=== PATIENT | male | born 1960 | race Caucasian/White ===

== ENCOUNTER → 2017-05-30 | Outpatient (REF) | payer OTHER ==
[~2017-05-30] MED LIST: PERC5TAB12 PO; TAMS0.4C2 PO; ZYLO300T4 PO
== END ==
LOC: M SMT 12:55
PROVIDERS: ATTEND Nurse Practitioner Women's Health
DX: N20.0 Calculus of kidney (principal)

== ENCOUNTER → 2017-06-07 | Outpatient (CLI) | payer OTHER ==
--- NOTE | 2017-06-07 08:31 | REP ---
CT abdomen and pelvis without IV or oral contrast: Renal stone protocol. History: Kidney stone. Flank pain. Comparison study January 28, 2016. 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 The lung bases are clear. The liver and the spleen are normal in size and homogeneous in texture. No adrenal lesion is seen on either side. The gallbladder and the pancreas are unremarkable and unchanged. There are multiple bilateral intrarenal calculi. There are four separately identifiable calculi in the left kidney the largest of which is a 4 mm calculus at mid pole level. The right kidney contains an 8 mm intrarenal calculus in the lower pole and a 3-4 mm calculus at mid pole level. There is no evidence of hydronephrosis on either side. No ureteral calculus is observed. There are dystrophic calcifications in the prostate. Urinary bladder is unremarkable. A normal appendix is seen in the right lower quadrant. Impression: Intrarenal nephrolithiasis bilaterally. No ureteral calculus or hydronephrosis seen. No other significant finding. Signed by Kris Sloan MD 06/07/2017 05:18 P
== END ==
LOC: M RAD 07:01
PROVIDERS: ATTEND Nurse Practitioner Women's Health
DX: N20.0 Calculus of kidney (principal); R10.9 Unspecified abdominal pain

== ENCOUNTER → 2017-06-14 | Outpatient (CLI) | payer OTHER ==
[2017-06-14 14:01] LABS: INR 0.97
[2017-06-14 14:12] LABS: MEAN CORPUSCULAR HEMOGLOBIN 30.5 pg (27.0-33.0); MEAN CORPUSCULAR HGB CONC 35.1 g/dl (32.0-36.5); MEAN CORPUSCULAR VOLUME 87.1 fl (80.0-96.0); RED CELL DISTRIBUTION WIDTH 12.8 % (11.5-14.5); WHITE BLOOD COUNT 5.7 K/mm3 (4.0-10.0)
[2017-06-14 14:18] LABS: ANION GAP 3 MEQ/L (8-16); BLOOD UREA NITROGEN 15 MG/DL (7-18); CALCIUM LEVEL 9.3 MG/DL (8.5-10.1); CARBON DIOXIDE LEVEL 31 MEQ/L (21-32); CHLORIDE LEVEL 105 MEQ/L (98-107); CREATININE FOR GFR 0.99 MG/DL (0.70-1.30); GLOMERULAR FILTRATION RATE > 60.0 (>56); GLUCOSE, FASTING 121 MG/DL (70-105); POTASSIUM SERUM 4.5 MEQ/L (3.5-5.1); SODIUM LEVEL 139 MEQ/L (136-145)
== END ==
LOC: M SMT 08:40
PROVIDERS: ATTEND Nurse Practitioner Women's Health
DX: Z01.818 Encounter for other preprocedural examination (principal); N20.0 Calculus of kidney

== ENCOUNTER 2017-06-22 07:11 | Day surgery (SDC) | payer OTHER ==
[~2017-06-22] VITALS: Ht 188 cm; Wt 118.8 kg
--- NOTE | 2017-06-22 07:21 | REP ---
Clinical: Nephrolithiasis. Comparison: CT dated 06/07/2017. Findings: Bilateral intrarenal calculi noted measuring up to approximately 4 mm. Calcifications in the right laura pelvis remains stable compared to 04/14/2016 and likely represent phleboliths. Bowel gas pattern is nonspecific. No organomegaly. Skeletal structures are intact. Impression: Bilateral intrarenal calculi measuring roughly up to 4 mm. Signed by Spencer Rocha MD 06/22/2017 07:13 A
[2017-06-22] MEDS ORDERED: LIDOCAINE 1% MDV 20ML VIAL SQ PRN (07:30)
[2017-06-22] MEDS ORDERED: PROPOFOL 200 MG/20 ML VIAL As Ordered ONE ×2 (07:47→08:29)
[2017-06-22] MEDS ORDERED: MIDAZOLAM INJ 2 MG/2 ML VIAL (J2250) As Ordered ONE (07:47)
[2017-06-22] MEDS ORDERED: LIDOCAINE 2% INJ 100 MG/5 ML SDV (FOR ANES.) As Ordered ONE (07:47)
[2017-06-22] MEDS ORDERED: fentaNYL 100 MCG/2 ML INJECTION (J3010) As Ordered ONE (07:47)
[2017-06-22] MEDS ORDERED: LR 1,000 ML IV SCH (08:00)
[2017-06-22] MEDS ORDERED: LIDOCAINE 1% SDV 5 ML VIAL SC ONE (08:00)
[2017-06-22] MEDS ORDERED: ONDANSETRON 4MG/2ML VIAL (J2405) As Ordered ONE (08:30)
[2017-06-22] MEDS ORDERED: PERCOCET 5MG/325MG TAB As Ordered ONE (09:14)
[2017-06-22] MEDS: PERCOCET 5MG/325MG TAB PO PRN ×2 (09:18→10:11)
[2017-06-22 10:15] VITALS: BP 136/88
--- NOTE | 2017-06-22 14:33 | RO ---
DATE OF PROCEDURE: 06/22/2017 PREOPERATIVE DIAGNOSIS: Right 8 mm lower pole stone. POSTOPERATIVE DIAGNOSIS: Right 8 mm lower pole stone. PROCEDURE: Right extracorporeal shock wave lithotripsy. SURGEON: Dr. Cristina Cam SKIMMER: ANESTHESIA: MAC. MEDICATIONS: 2 grams of Ancef preoperatively. INDICATIONS FOR PROCEDURE: The patient is a 57-year-old gentleman who has been having right flank pain. A CT scan showed an 8 mm right renal stone and some small left renal stones. After discussing all different options, alternatives, risks and benefits, he decided to proceed with a right ESWL. He has had these done before. Informed consent was obtained in both verbal and written form. DESCRIPTION OF PROCEDURE: The patient was brought to the operating room and sequential compression devices were in place. Using both ultrasound and fluoroscopy the stone was visualized and then placed in the cross hairs of the machine. The patient then received a total of 2500 shockwaves with a total power level of 20. He tolerated the procedure well and was returned to the recovery room in stable condition. Percocet #10 tablets was prescribed for postoperative pain control.
== END 2017-06-22 10:20 | disposition home or self-care (01) ==
LOC: M SDC 07:11
PROVIDERS: ATTEND Specialist
DX: N20.0 Calculus of kidney (principal); J30.2 Other seasonal allergic rhinitis; M10.9 Gout, unspecified; K21.9 Gastro-esophageal reflux disease without esophagitis; R51 Headache; R06.83 Snoring; Z79.899 Other long term (current) drug therapy; Z87.891 Personal history of nicotine dependence

== ENCOUNTER → 2017-07-14 | Outpatient (CLI) | payer OTHER ==
--- NOTE | 2017-07-14 09:50 | REP ---
KUB, TWO VIEWS: HISTORY: Kidney stones. COMPARISON: 06/22/2017. Air is present in small and large intestine. There are no air fluid levels or dilated loops of intestine. There is no pneumoperitoneum. Calcifications are present overlying the kidneys consistent with nephrolithiasis. IMPRESSION: 1. Nonspecific bowel gas pattern. 2. Bilateral nephrolithiasis. Signed by Kevon Alfred MD 07/14/2017 09:54 A
== END ==
LOC: M SMT 08:34
PROVIDERS: ATTEND Specialist
DX: N20.0 Calculus of kidney (principal)

== ENCOUNTER → 2017-12-28 | Outpatient (REF) | payer OTHER | LOC: M SFHCLERA 20:40 | DX: J02.9 Acute pharyngitis, unspecified (principal) ==

== ENCOUNTER → 2018-01-19 | Outpatient (CLI) | payer OTHER | LOC: M SMT 09:16 | DX: N20.0 Calculus of kidney (principal) | CPT/HCPCS: 74018 ==

== ENCOUNTER 2019-09-04 11:57 | Day surgery (SDC) | payer OTHER ==
[~2019-09-04] VITALS: Ht 188 cm; Wt 113.4 kg
[~2019-09-04 11:57] MED LIST changes: +NS 1,000 ML IV ONE; -ZYLO300T4 PO; +ZYLO300T6 PO
[2019-09-04] MEDS ORDERED: LIDOCAINE 2% INJ 100 MG/5 ML SDV (FOR ANES.) As Ordered ONE (13:11)
[2019-09-04] MEDS ORDERED: PROPOFOL 200 MG/20 ML VIAL As Ordered ONE (13:11)
--- NOTE | 2019-09-04 13:51 | ROOR ---
Patient Name: Maycol Adams Procedure Date: 09/04/2019 1:22 PM Date of : 1960 Age: 59 Room: [facility] Gender: Male Note Status: Finalized Procedure: Total Colonoscopy to Cecum + Biopsy Polypectomy + Hemoclip Indications: Screening in patient at increased risk: Family history of 1st-degree relative with colorectal cancer Providers: Fernando Rao MD Referring MD: ENRICO BILL DO Requesting Provider: Medicines: Monitored Anesthesia Care Complications: No immediate complications. Procedure: Pre-Anesthesia Assessment: - The heart rate, respiratory rate, oxygen saturations, blood pressure, adequacy of pulmonary ventilation, and response to care were monitored throughout the procedure. The Colonoscope was introduced through the anus and advanced to the cecum, identified by appendiceal orifice and ileocecal valve. The colonoscopy was performed without difficulty. The patient tolerated the procedure well. The quality of the bowel preparation was excellent. Findings: The perianal and digital rectal examinations were normal. Non-bleeding internal hemorrhoids were found during retroflexion. The hemorrhoids were small and Grade I (internal hemorrhoids that do not prolapse). A medium polyp was found at 30 cm proximal to the anus. The polyp was sessile. The polyp was removed with a jumbo cold forceps. Resection and retrieval were complete. To prevent bleeding after the polypectomy, one hemostatic clip was successfully placed (MR conditional). There was no bleeding at the end of the procedure. The exam was otherwise without abnormality on direct and retroflexion views. Impression: - Non-bleeding internal hemorrhoids. - One medium polyp at 30 cm proximal to the anus, removed with a jumbo cold forceps. Resected and retrieved. Clip (MR conditional) was placed. - The examination was otherwise normal on direct and retroflexion views. - The exam was otherwise normal to the cecum. Recommendation: - Patient has a contact number available for emergencies. The signs and symptoms of potential delayed complications were discussed with the patient. Return to normal activities tomorrow. Written discharge instructions were provided to the patient. - Discharge patient to home. - Continue present medications. - Await pathology results. - Telephone GI clinic for pathology results in 1 week. - Repeat colonoscopy in 5 years for surveillance based on pathology results. - Return to referring physician. - The findings and recommendations were discussed with the patient's family. Fernando Rao MD Fernando Rao MD 09/04/2019 1:50:23 PM Electronically signed by Fernando Rao MD Number of Addenda: 0 Note Initiated On: 09/04/2019 1:22 PM Estimated Blood Loss: Estimated blood loss: none.
[2019-09-04 14:10] VITALS: BP 144/89
== END 2019-09-04 14:18 | disposition home or self-care (01) ==
LOC: M OPP 11:57
PROVIDERS: ATTEND Internal Medicine Gastroenterology
DX: Z12.11 Encounter for screening for malignant neoplasm of colon (principal); Z80.0 Family history of malignant neoplasm of digestive organs; K64.0 First degree hemorrhoids; D12.6 Benign neoplasm of colon, unspecified

== ENCOUNTER → 2019-10-07 | Outpatient (REF) | payer OTHER ==
[~2019-10-07] MED LIST changes: -NS 1,000 ML IV ONE
== END ==
LOC: M SFHCLERA 20:03
PROVIDERS: ATTEND Nurse Practitioner Family
DX: M25.541 Pain in joints of right hand (principal); M25.542 Pain in joints of left hand; M79.89 Other specified soft tissue disorders

== ENCOUNTER → 2019-10-08 | Outpatient (REF) | payer OTHER ==
[2019-10-08 20:49] LABS: BASO # 0.1 10^3/uL (0.0-0.2); EOS # 0.1 10^3/uL (0.0-0.5); EOS % 1.8 % (0.0-3.0); HEMATOCRIT 43.5 % (42.0-52.0); HEMOGLOBIN 14.4 g/dl (13.5-17.5); LYMPH # 1.4 10^3/uL (1.5-5.0); LYMPH % 19.1 % (24.0-44.0); MEAN CORPUSCULAR HEMOGLOBIN 29.4 pg (27.0-33.0); MEAN CORPUSCULAR HGB CONC 33.1 g/dl (32.0-36.5); MEAN CORPUSCULAR VOLUME 88.8 fl (80.0-96.0); MONO # 0.6 10^3/uL (0.0-0.8); MONO % 7.6 % (0.0-5.0); NEUTROPHILS # 5.1 10^3/uL (1.5-8.5); NEUTROPHILS % 70.1 % (36.0-66.0); PLATELET COUNT, AUTOMATED 173 10^3/uL (150-450); WHITE BLOOD COUNT 7.3 10^3/uL (4.0-10.0)
[2019-10-08 21:00] LABS: ALBUMIN 4.1 GM/DL (3.2-5.2); ALT/SGPT 34 U/L (12-78); BILIRUBIN,TOTAL 0.7 MG/DL (0.2-1.0); BLOOD UREA NITROGEN 18 MG/DL (7-18); C REACTIVE PROTEIN QUANTITATIV 0.46 MG/DL (0.00-0.30); CALCIUM LEVEL 8.7 MG/DL (8.8-10.2); CARBON DIOXIDE LEVEL 28 MEQ/L (21-32); CHLORIDE LEVEL 110 MEQ/L (98-107); CREATININE FOR GFR 1.01 MG/DL (0.70-1.30); GLOMERULAR FILTRATION RATE > 60.0 (>49); GLUCOSE, FASTING 120 MG/DL (70-100); POTASSIUM SERUM 4.4 MEQ/L (3.5-5.1); SODIUM LEVEL 143 MEQ/L (136-145); TOTAL PROTEIN 6.8 GM/DL (6.4-8.2); URIC ACID 5.6 MG/DL (3.5-7.2)
[2019-10-08 21:16] LABS: ERYTHROCYTE SEDIMENTATION RATE 5 mm/hr (0-20)
[2019-10-11 00:07] LABS: Lyme Disease IgG/IgM Antibodie <0.91 ISR (0.00-0.90); Lyme Disease IgM Ab Quantitati <0.80 index (0.00-0.79)
== END ==
LOC: M SFHCLERA 15:09
PROVIDERS: ATTEND Nurse Practitioner Family
DX: M25.541 Pain in joints of right hand (principal); M25.542 Pain in joints of left hand; M79.89 Other specified soft tissue disorders

== ENCOUNTER → 2020-05-27 | Outpatient (CLI) | payer OTHER ==
[~2020-05-27] MED LIST changes: +ISOVUE-370 76% 100ML VIAL As Ordered ONE
--- NOTE | 2020-05-27 11:37 | REPVR ---
PROCEDURE INFORMATION: Exam: CT Neck With Contrast Exam date and time: 05/27/2020 11:14 AM Age: 60 years old Clinical indication: Screening exam; Mass/swelling; Additional info: R22.1 localized swelling lump / mass neck TECHNIQUE: Imaging protocol: Computed tomography images of the neck with intravenous contrast. Radiation optimization: All CT scans at this facility use at least one of these dose optimization techniques: automated exposure control; mA and/or kV adjustment per patient size (includes targeted exams where dose is matched to clinical indication); or iterative reconstruction. Contrast material: ISOVUE 370; Contrast volume: 75 ml; Contrast route: INTRAVENOUS (IV); COMPARISON: No relevant prior studies available. FINDINGS: Nasopharynx: Unremarkable. Oropharynx: Unremarkable. No significant tonsillar enlargement. Hypopharynx: Unremarkable. Larynx: Unremarkable. Normal epiglottis. Retropharyngeal space: Unremarkable. Submandibular/Parotid glands: Normal. Glands are normal in size. Thyroid: Normal. No enlarged or calcified nodules. Lymph nodes: Unremarkable. No lymphadenopathy. Trachea: Visualized trachea is unremarkable. Lungs: Unremarkable as visualized. Bones/joints: There is degenerative disc disease and spondylosis. Severe intervertebral disc space loss is noted at C5/6 and C6/7. No acute fracture. Soft tissues: The site of palpable abnormality indicated by radiopaque marker along the right posteromedial neck at the C1/C2 level corresponds to a 3.6 x 1.6 x 2.1 cm fat attenuation lesion within the subcutaneous fat, compatible with lipoma. IMPRESSION: No acute findings. Right posterior and superior soft tissue lipoma. Electronically signed by: Radhika Pascual On 05/27/2020 11:37:03 AM
== END ==
LOC: M RAD 05-14 15:51
PROVIDERS: ATTEND Otolaryngology
DX: R22.1 Localized swelling, mass and lump, neck (principal)
CPT/HCPCS: 70491; Q9967

== ENCOUNTER → 2022-03-17 | Outpatient (CLI) | payer OTHER ==
[~2022-03-17] MED LIST changes: -ISOVUE-370 76% 100ML VIAL As Ordered ONE
== END ==
LOC: M WUC 10:14
PROVIDERS: ATTEND Family Medicine
DX: M62.830 Muscle spasm of back (principal)

== ENCOUNTER → 2022-10-05 | Outpatient (CLI) | payer OTHER ==
[2022-10-05 13:07] LABS: APPEARANCE, URINE MANUAL CLEAR (CLEAR); COLOR, URINE MANUAL YELLOW (YELLOW)
[2022-10-05 13:08] LABS: BILIRUBIN, URINE MANUAL NEGATIVE (NEGATIVE); BLOOD URINE MANUAL NEGATIVE (NEGATIVE); GLUCOSE, URINE (UA) MANUAL NEGATIVE (NEGATIVE); KETONE, URINE MANUAL NEGATIVE (NEGATIVE); LEUKOCYTE ESTERASE, URINE MAN NEGATIVE (NEGATIVE); NITRITE, URINE MANUAL NEGATIVE (NEGATIVE); PROTEIN, URINE MANUAL NEGATIVE (NEGATIVE); SPECIFIC GRAVITY,URINE MANUAL 1.025 (1.002-1.035); UROBILINOGEN, URINE MANUAL NORMAL (NORMAL)
[2022-10-05 13:10] LABS: BASO # 0.1 10^3/uL (0.0-0.2); BASO % 1.3 % (0.0-1.0); EOS # 0.2 10^3/uL (0.0-0.5); EOS % 2.2 % (0.0-3.0); HEMATOCRIT 46.4 % (42.0-52.0); HEMOGLOBIN 15.5 g/dl (13.5-17.5); LYMPH # 1.6 10^3/uL (1.5-5.0); LYMPH % 24.3 % (24.0-44.0); MEAN CORPUSCULAR HGB CONC 33.4 g/dl (32.0-36.5); MEAN CORPUSCULAR VOLUME 89.9 fl (80.0-96.0); MONO # 0.6 10^3/uL (0.0-0.8); MONO % 9.4 % (2.0-8.0); NEUTROPHILS # 4.2 10^3/uL (1.5-8.5); NEUTROPHILS % 62.5 % (36.0-66.0); PLATELET COUNT, AUTOMATED 187 10^3/uL (150-450); RED BLOOD COUNT 5.16 10^6/uL (4.30-6.10); WHITE BLOOD COUNT 6.7 10^3/uL (4.0-10.0)
[2022-10-05 13:34] LABS: ERYTHROCYTE SEDIMENTATION RATE 6 mm/hr (0-20)
[2022-10-05 13:35] LABS: ALBUMIN 4.2 G/DL (3.2-5.2); ALKALINE PHOSPHATASE 84 U/L (46-116); ALT/SGPT 37 U/L (7.0-40); AST/SGOT 31 U/L (<34); BILIRUBIN,TOTAL 0.9 MG/DL (0.3-1.2); BLOOD UREA NITROGEN 17 MG/DL (9-23); CALCIUM LEVEL 10.1 MG/DL (8.3-10.6); CARBON DIOXIDE LEVEL 31 MMOL/L (20-31); CHLORIDE LEVEL 105 MMOL/L (98-107); CREATININE FOR GFR 0.88 MG/DL (0.70-1.30); GLOMERULAR FILTRATION RATE > 60.0 (>49); GLUCOSE, FASTING 102 MG/DL (74-106); POTASSIUM SERUM 4.6 MMOL/L (3.5-5.1); SODIUM LEVEL 142 MMOL/L (136-145)
== END ==
LOC: M WUC 09:20
PROVIDERS: ATTEND Family Medicine
DX: Z00.01 Encounter for general adult medical examination with abnormal findings (principal); M54.50 Low back pain, unspecified

== ENCOUNTER → 2023-02-16 | Outpatient (REF) | payer OTHER ==
[2023-02-16 17:14] LABS: APPEARANCE, URINE CLEAR (CLEAR); BACTERIA, URINE AUTO NEGATIVE (NEGATIVE); BILIRUBIN, URINE AUTO NEGATIVE (NEGATIVE); BLOOD, URINE BLOOD 1+ (NEGATIVE); COLOR, URINE YELLOW (YELLOW); GLUCOSE, URINE (UA) AUTO NEGATIVE (NEGATIVE); KETONE, URINE AUTO NEGATIVE (NEGATIVE); LEUKOCYTE ESTERASE, URINE AUTO NEGATIVE (NEGATIVE); NITRITE, URINE AUTO NEGATIVE (NEGATIVE); PROTEIN, URINE AUTO NEGATIVE (NEGATIVE); RBC, URINE AUTO 7 /HPF (0-3); SPECIFIC GRAVITY URINE AUTO 1.012 (1.002-1.035); SQUAMOUS EPITHELIAL CELL UR AU 0 /HPF (0-6); UROBILINOGEN, URINE AUTO 0.2 mg/dL (0.0-2.0); WBC, URINE AUTO 2 /HPF (0-3)
[2023-02-16 17:19] LABS: BASO # 0.1 10^3/uL (0.0-0.2); BASO % 1.5 % (0.0-1.0); EOS # 0.1 10^3/uL (0.0-0.5); EOS % 2.3 % (0.0-3.0); HEMOGLOBIN 15.1 g/dl (13.5-17.5); LYMPH # 1.3 10^3/uL (1.5-5.0); LYMPH % 21.5 % (24.0-44.0); MEAN CORPUSCULAR HEMOGLOBIN 29.5 pg (27.0-33.0); MEAN CORPUSCULAR HGB CONC 32.8 g/dl (32.0-36.5); MONO # 0.6 10^3/uL (0.0-0.8); MONO % 9.9 % (2.0-8.0); NEUTROPHILS # 3.9 10^3/uL (1.5-8.5); NEUTROPHILS % 64.5 % (36.0-66.0); PLATELET COUNT, AUTOMATED 181 10^3/uL (150-450); RED BLOOD COUNT 5.11 10^6/uL (4.30-6.10); WHITE BLOOD COUNT 6.1 10^3/uL (4.0-10.0)
[2023-02-16 17:49] LABS: ALBUMIN 4.3 G/DL (3.2-5.2); ALKALINE PHOSPHATASE 65 U/L (46-116); ALT/SGPT 29 U/L (7.0-40); AST/SGOT 26 U/L (<34); BILIRUBIN,TOTAL 1.5 MG/DL (0.3-1.2); BLOOD UREA NITROGEN 18 MG/DL (9-23); CALCIUM LEVEL 9.9 MG/DL (8.3-10.6); CARBON DIOXIDE LEVEL 30 MMOL/L (20-31); CHLORIDE LEVEL 107 MMOL/L (98-107); CREATININE FOR GFR 0.91 MG/DL (0.70-1.30); GLOMERULAR FILTRATION RATE > 60.0 (>49); GLUCOSE, FASTING 101 MG/DL (74-106); POTASSIUM SERUM 4.7 MMOL/L (3.5-5.1); SODIUM LEVEL 140 MMOL/L (136-145); TOTAL PROTEIN 6.6 G/DL (5.7-8.2)
== END ==
LOC: M LAB REF 16:13
PROVIDERS: ATTEND Family Medicine
DX: R35.0 Frequency of micturition (principal); R35.1 Nocturia; R10.30 Lower abdominal pain, unspecified

== ENCOUNTER → 2023-03-07 | Outpatient (CLI) | payer OTHER | LOC: M RAD 15:00 | PROVIDERS: ATTEND Family Medicine | DX: N20.0 Calculus of kidney (principal) ==

== ENCOUNTER → 2023-04-03 | Outpatient (CLI) | payer OTHER ==
[2023-04-03 14:54] LABS: HEMATOCRIT 43.8 % (42.0-52.0); HEMOGLOBIN 14.7 g/dl (13.5-17.5); MEAN CORPUSCULAR HEMOGLOBIN 29.9 pg (27.0-33.0); MEAN CORPUSCULAR HGB CONC 33.6 g/dl (32.0-36.5); MEAN CORPUSCULAR VOLUME 89.2 fl (80.0-96.0); PLATELET COUNT, AUTOMATED 174 10^3/uL (150-450); RED BLOOD COUNT 4.91 10^6/uL (4.30-6.10)
[2023-04-03 14:55] LABS: APPEARANCE, URINE CLEAR (CLEAR); BACTERIA, URINE AUTO NEGATIVE (NEGATIVE); BILIRUBIN, URINE AUTO NEGATIVE (NEGATIVE); BLOOD, URINE BLOOD 1+ (NEGATIVE); COLOR, URINE YELLOW (YELLOW); GLUCOSE, URINE (UA) AUTO NEGATIVE (NEGATIVE); KETONE, URINE AUTO NEGATIVE (NEGATIVE); LEUKOCYTE ESTERASE, URINE AUTO NEGATIVE (NEGATIVE); NITRITE, URINE AUTO NEGATIVE (NEGATIVE); PROTEIN, URINE AUTO NEGATIVE (NEGATIVE); RBC, URINE AUTO 22 /HPF (0-3); SPECIFIC GRAVITY URINE AUTO 1.016 (1.002-1.035); SQUAMOUS EPITHELIAL CELL UR AU 0 /HPF (0-6); UROBILINOGEN, URINE AUTO 0.2 mg/dL (0.0-2.0); WBC, URINE AUTO 2 /HPF (0-3)
[2023-04-03 15:19] LABS: BLOOD UREA NITROGEN 19 MG/DL (9-23); CARBON DIOXIDE LEVEL 30 MMOL/L (20-31); CHLORIDE LEVEL 107 MMOL/L (98-107); CREATININE FOR GFR 0.81 MG/DL (0.70-1.30); GLOMERULAR FILTRATION RATE > 60.0 (>49); GLUCOSE, FASTING 82 MG/DL (74-106); POTASSIUM SERUM 4.1 MMOL/L (3.5-5.1); SODIUM LEVEL 139 MMOL/L (136-145)
== END ==
LOC: M RAD 13:06
PROVIDERS: ATTEND Physician Assistant
DX: Z01.818 Encounter for other preprocedural examination (principal)

== ENCOUNTER 2023-04-06 09:44 | Day surgery (SDC) | payer OTHER ==
[~2023-04-06] VITALS: Ht 188 cm; Wt 90.0 kg
[~2023-04-06 09:44] MED LIST changes: +ceFAZolin SOD 2 GM in IV 1 EA IV ONE
[2023-04-06] MEDS ORDERED: MIDAZOLAM INJ 2MG/2ML VIAL As Ordered ONE (13:06)
[2023-04-06] MEDS ORDERED: propofoL 200 MG/20 ML VIAL As Ordered ONE (13:06)
[2023-04-06] MEDS ORDERED: fentaNYL 100 MCG/2 ML INJECTION As Ordered ONE (13:06)
[2023-04-06] MEDS ORDERED: ONDANSETRON 4MG 2ML VIAL As Ordered ONE (13:06)
[2023-04-06] MEDS ORDERED: LIDOCAINE 2% 100MG/5ML SDV (FOR ANES.) As Ordered ONE (13:06)
[2023-04-06 14:35] VITALS: BP 142/79; TEMP 97.3; O2SAT 98
== END 2023-04-06 14:40 | disposition home or self-care (01) ==
LOC: M SDC 09:44
PROVIDERS: ATTEND Urology
DX: N20.0 Calculus of kidney (principal); Z79.899 Other long term (current) drug therapy; Z87.891 Personal history of nicotine dependence; Z80.0 Family history of malignant neoplasm of digestive organs; Z80.3 Family history of malignant neoplasm of breast; Z80.8 Family history of malignant neoplasm of other organs or systems; M10.9 Gout, unspecified
CPT/HCPCS: 50590; 74018; J0690; J2250; J2405; J3010

== ENCOUNTER → 2023-04-20 | Day surgery (SDC) | payer OTHER ==
[~2023-04-20] VITALS: Ht 188 cm; Wt 90.3 kg
[~2023-04-20] MED LIST changes: +KETOROLAC 60MG 2ML VIAL As Ordered ONE; +LIDOCAINE 2% 100MG/5ML SDV (FOR ANES.) As Ordered ONE; +LR 1,000 ML IV SCH; +MIDAZOLAM INJ 2MG/2ML VIAL As Ordered ONE; -ceFAZolin SOD 2 GM in IV 1 EA IV ONE; +fentaNYL 100 MCG/2 ML INJECTION As Ordered ONE; +propofoL 200 MG/20 ML VIAL As Ordered ONE
[2023-04-20] MEDS: ceFAZolin SOD 2 GM in IV 1 EA IV ONE (09:11)
[2023-04-20 10:00] VITALS: BP 139/79; TEMP 97.7; O2SAT 99
== END | disposition home or self-care (01) ==
LOC: M SDC 08:03
PROVIDERS: ATTEND Urology
DX: N40.0 Benign prostatic hyperplasia without lower urinary tract symptoms (principal); J30.2 Other seasonal allergic rhinitis; Z79.899 Other long term (current) drug therapy; Z87.891 Personal history of nicotine dependence; Z87.442 Personal history of urinary calculi
CPT/HCPCS: 50590; 74018; J0690; J1885; J2250; J3010

== ENCOUNTER → 2023-05-23 | Outpatient (CLI) | payer MEDICARE, OTHER ==
[~2023-05-23] MED LIST changes: -KETOROLAC 60MG 2ML VIAL As Ordered ONE; -LIDOCAINE 2% 100MG/5ML SDV (FOR ANES.) As Ordered ONE; -LR 1,000 ML IV SCH; -MIDAZOLAM INJ 2MG/2ML VIAL As Ordered ONE; -fentaNYL 100 MCG/2 ML INJECTION As Ordered ONE; -propofoL 200 MG/20 ML VIAL As Ordered ONE
== END ==
LOC: M RAD 10:59
PROVIDERS: ATTEND Family Medicine
DX: N20.0 Calculus of kidney (principal)

== ENCOUNTER → 2023-05-25 | Outpatient (REF) | payer MEDICARE, OTHER | LOC: M SMT 13:02 | PROVIDERS: ATTEND Physician Assistant | DX: N20.0 Calculus of kidney (principal) ==

== ENCOUNTER → 2024-02-01 | Outpatient (CLI) | payer MEDICARE | LOC: M WUC 10:05 | PROVIDERS: ATTEND Physician Assistant | DX: N20.0 Calculus of kidney (principal) ==

== ENCOUNTER → 2024-02-05 | Day surgery (SDC) | payer MEDICARE, OTHER ==
[~2024-02-05] VITALS: Ht 188 cm; Wt 95.7 kg
[~2024-02-05] MED LIST changes: +LIDOCAINE 2% 100MG/5ML SDV (FOR ANES.) As Ordered ONE; +propofoL 200 MG/20 ML VIAL As Ordered ONE
[2024-02-05] MEDS: NS 1,000 ML IV ONE (10:09)
[2024-02-05 12:48] VITALS: BP 132/78; TEMP 97.3; O2SAT 98
== END | disposition home or self-care (01) ==
LOC: M OPP 09:50
PROVIDERS: ATTEND Internal Medicine Gastroenterology
DX: Z12.11 Encounter for screening for malignant neoplasm of colon (principal); D12.3 Benign neoplasm of transverse colon; K64.0 First degree hemorrhoids; Z86.010 Personal history of colon polyps; Z80.0 Family history of malignant neoplasm of digestive organs; Z87.891 Personal history of nicotine dependence